=== PATIENT | male | born 1935 | race Caucasian/White ===

== ENCOUNTER 2016-06-17 07:58 | Outpatient (CLI) | payer MEDICARE ==
[2016-06-17 08:54] LABS: ALT (SGPT) 13 U/L (0-55); AST (SGOT) 18 U/L (5-34); Alkaline Phosphatase 75 U/L (40-150); Anion Gap 12 mmol/L (10-20); BUN (Urea Nitrogen) 8 mg/dL (8.4-25.7); Bilirubin, Total 0.7 mg/dL (0.2-1.2); Calc. Creatinine Clearance 0 mL/min (70-130); Calcium 9.1 mg/dL (7.8-10.44); Carbon Dioxide 27 mmol/L (23-31); Cardiac Risk 3.1 (Less than 4.5); Chloride 105 mmol/L (98-107); Cholesterol 172 mg/dL (< 200 Desired); Estimated GFR-MDRD 89; Globulin 2.6 g/dL (2.4-3.5); Glucose 93 mg/dL (83-110); HDL Cholesterol 55 mg/dL (>60 Neg Risk); LDL Cholesterol, Calculated 104 mg/dL; Potassium 3.9 mmol/L (3.5-5.1); Protein, Total 6.6 g/dL (5.8-8.1); Sodium 140 mmol/L (136-145)
[2016-06-17 09:02] LABS: #Basophils 0.1 thou/uL (0.0-0.2); #Eosinphils 0.2 thou/uL (0.0-0.7); #Lymphocytes 1.7 thou/uL (1.20-3.40); #Monocytes 0.6 thou/uL (0.11-0.59); %Basophils 2.4 % (0.0-1.0); %Eosinophils 2.9 % (0.0-10.0); %Lymphocytes 30.9 % (21.0-51.0); %Monocytes 10.8 % (0.0-10.0); Mean Corpuscular HGB CONC 32.9 g/dL (32.0-36.0); Mean Corpuscular Hemoglobin 31.5 pg (27.0-31.0); Mean Corpuscular Volume 95.7 fl (80.0-94.0); Mean Platelet Volume 9.4 fL (7.4-10.4); Platelet Count 164 thou/uL (130-400); RBC Distribution Width 12.8 % (11.5-14.5); Red Blood Cell (RBC) Count 5.42 mill/uL (4.70-6.10); White Blood Cell (WBC) Count 5.6 thou/uL (4.8-10.8)
[2016-06-17 09:09] LABS: Triglycerides 67 mg/dL (Less than 150)
[2016-06-17 10:51] LABS: Bilirubin Negative (Negative); Blood, Urine Small (Negative); Clarity Clear (Clear); Glucose, Urine (Dipstick) Negative (Negative); Leukocyte Negative (Negative); Nitrite Negative (Negative); Protein, Urine (Dipstick) Negative (Neg-Trace); Specific Gravity, Urine 1.025 (1.005-1.030); Urobilinogen 0.2 mg/dL (0.2-1.0); pH, Urine 5.5 (5.0-9.0)
[2016-06-17 11:07] LABS: RBC/HPF 0-3 HPF (0-3)
[2016-06-17 11:08] LABS: Bacteria/HPF Rare-Few HPF (None Seen); Squamous Epithelial 0-3 HPF (0-3); WBC/HPF None Seen HPF (0-3)
== END 2016-06-17 07:59 ==
LOC: MADLABBHPM 07:58
PROVIDERS: ATTEND Family Medicine
DX: F41.9 Anxiety disorder, unspecified (principal); I10 Essential (primary) hypertension
CPT/HCPCS: 36415; 80053; 80061; 81001; 84443; 85025

== ENCOUNTER 2016-10-21 11:18 | Outpatient (CLI) | payer MEDICARE ==
--- NOTE | 2016-10-21 20:33 | RAD ---
FOUR VIEWS OF LEFT KNEE 10/21/16 INDICATION: Left knee pain. COMPARISON: None. FINDINGS: There is severe osteoarthrosis of the left knee. There is mild joint capsular distention. There are prominent vascular calcifications seen within the posterior aspect of the left knee. There is severe medial femorotibial joint compartmental narrowing. IMPRESSION: Severe osteoarthrosis of the left knee. POS: [facility]
== END 2016-10-21 11:19 | disposition home or self-care (01) ==
LOC: MADRAD 11:18
PROVIDERS: ATTEND Family Medicine
DX: M25.562 Pain in left knee (principal); M17.12 Unilateral primary osteoarthritis, left knee

== ENCOUNTER 2018-10-14 08:08 | Outpatient (CLI) | payer MEDICARE ==
[2018-10-14 08:21] LABS: #Basophils 0.1 thou/uL (0.0-0.2); #Eosinphils 0.1 thou/uL (0.0-0.7); #Monocytes 0.5 thou/uL (0.11-0.59); #Neutrophils 2.5 thou/uL (1.40-6.50); %Basophils 1.8 % (0.0-1.0); %Eosinophils 2.3 % (0.0-10.0); %Lymphocytes 38.5 % (21.0-51.0); %Monocytes 9.6 % (0.0-10.0); %Neutrophils 47.9 % (42.0-75.0); Hemoglobin 15.5 g/dL (14.0-18.0); Mean Corpuscular HGB CONC 32.7 g/dL (32.0-36.0); Mean Corpuscular Hemoglobin 30.8 pg (27.0-31.0); Mean Corpuscular Volume 94.4 fL (78.0-98.0); Mean Platelet Volume 8.1 fL (7.4-10.4); Platelet Count 173 thou/uL (130-400); RBC Distribution Width 12.4 % (11.5-14.5); Red Blood Cell (RBC) Count 5.03 mill/uL (4.70-6.10); White Blood Cell (WBC) Count 5.2 thou/uL (4.8-10.8)
[2018-10-14 08:41] LABS: ALT (SGPT) 14 U/L (8-55); AST (SGOT) 18 U/L (5-34); Albumin 4.2 g/dL (3.4-4.8); Alkaline Phosphatase 62 U/L (40-150); Anion Gap 16 mmol/L (10-20); BUN (Urea Nitrogen) 11 mg/dL (8.4-25.7); Bilirubin, Total 1.1 mg/dL (0.2-1.2); Calc. Creatinine Clearance 0 mL/min (70-130); Calcium 9.3 mg/dL (7.8-10.44); Carbon Dioxide 25 mmol/L (23-31); Chloride 105 mmol/L (98-107); Cholesterol 171 mg/dl (< 200 Desired); Estimated GFR-MDRD 71; Globulin 2.8 g/dL (2.4-3.5); Glucose 96 mg/dL (83-110); HDL Cholesterol 57 mg/dL (>60 Neg Risk); LDL Cholesterol, Calculated 94 mg/dL; Sodium 142 mmol/L (136-145); Triglycerides 100 mg/dL (Less than 150)
== END 2018-10-14 08:09 | disposition home or self-care (01) ==
LOC: MADLABBHPM 08:08
PROVIDERS: ATTEND Family Medicine
DX: I10 Essential (primary) hypertension (principal); F32.9 Major depressive disorder, single episode, unspecified
CPT/HCPCS: 36415; 80053; 80061; 84443; 85025

== ENCOUNTER 2019-11-22 14:35 | Outpatient (CLI) | payer MEDICARE ==
[2019-11-22 14:52] LABS: #Basophils 0.1 thou/uL (0.0-0.2); #Lymphocytes 1.8 thou/uL (1.20-3.40); #Monocytes 0.7 thou/uL (0.11-0.59); #Neutrophils 4.8 thou/uL (1.40-6.50); %Basophils 1.3 % (0.0-1.0); %Eosinophils 0.4 % (0.0-10.0); %Lymphocytes 24.5 % (21.0-51.0); %Monocytes 8.9 % (0.0-10.0); %Neutrophils 64.9 % (42.0-75.0); Hemoglobin 15.7 g/dL (14.0-18.0); Mean Corpuscular HGB CONC 32.6 g/dL (32.0-36.0); Mean Corpuscular Hemoglobin 31.1 pg (27.0-31.0); Mean Corpuscular Volume 95.5 fL (78.0-98.0); Platelet Count 215 thou/uL (130-400); RBC Distribution Width 12.2 % (11.5-14.5); Red Blood Cell (RBC) Count 5.03 mill/uL (4.70-6.10); White Blood Cell (WBC) Count 7.4 thou/uL (4.8-10.8)
[2019-11-22 15:07] LABS: ALT (SGPT) 17 U/L (8-55); AST (SGOT) 19 U/L (5-34); Albumin 4.3 g/dL (3.4-4.8); Alkaline Phosphatase 58 U/L (40-110); Anion Gap 16 mmol/L (10-20); BUN (Urea Nitrogen) 8 mg/dL (8.4-25.7); Bilirubin, Total 0.9 mg/dL (0.2-1.2); Calc. Creatinine Clearance 0 mL/min (70-130); Calcium 9.2 mg/dL (7.8-10.44); Carbon Dioxide 24 mmol/L (23-31); Cardiac Risk 3.4 (Less than 4.5); Chloride 106 mmol/L (98-107); Cholesterol 183 mg/dl (< 200 Desired); Estimated GFR-MDRD 90; Globulin 2.8 g/dL (2.4-3.5); Glucose 96 mg/dL (83-110); HDL Cholesterol 54 mg/dL (>60 Neg Risk); LDL Cholesterol, Calculated 112 mg/dL; Potassium 3.9 mmol/L (3.5-5.1); Protein, Total 7.1 g/dL (5.8-8.1); Sodium 142 mmol/L (136-145); Triglycerides 86 mg/dL (Less than 150)
[2019-11-22 15:21] LABS: Thyroid Stimulating Hormone 0.7186 uIU/mL (0.35-4.94)
--- NOTE | 2019-11-22 15:43 | CT ---
CT BRAIN WITH AND WITHOUT IV CONTRAST: HISTORY: Memory loss, old injury, dizziness COMPARISON: Noncontrasted CT scan of 03/09/2008 FINDINGS: There are changes of mild cortical atrophy and mild chronic small cell ischemic disease. No evidence of infarct, hemorrhage, mass, midline shift or abnormal extra axial fluid collections is seen. The ventricular size is normal and the basilar cisterns are patent. No abnormal postcontrast enhancement is seen. The bony calvarium is intact. The visualized paranasal sinuses are well-aerated. IMPRESSION: No CT evidence of acute intracranial process or mass.
== END 2019-11-22 14:36 | disposition home or self-care (01) ==
LOC: MADRAD 14:35
PROVIDERS: ATTEND Family Medicine
DX: R41.3 Other amnesia (principal); I10 Essential (primary) hypertension
CPT/HCPCS: 36415; 70470; 80053; 80061; 82607; 84443; 85025

== ENCOUNTER 2021-09-25 10:48 | Emergency (ER) | payer SELFPAY | END 2021-09-25 11:52 | disposition home or self-care (01) | LOC: MADERS 10:48 | DX: H53.8 Other visual disturbances (principal); R51.9 Headache, unspecified; I10 Essential (primary) hypertension; F17.220 Nicotine dependence, chewing tobacco, uncomplicated; Z79.899 Other long term (current) drug therapy | CPT/HCPCS: 99283 ==